=== PATIENT | female | born 1975 | race Caucasian/White ===

== ENCOUNTER 2016-10-30 06:36 | Day surgery (SDC) | payer BC ==
[2016-10-24 12:27] LABS: BASOPHILS 0.1 %; BASOPHILS ABSOLUTE 0.01 10/3/uL (0.0-0.16); EOSINOPHILS 1.4 %; HEMATOCRIT 39.8 % (36.0-48.0); HEMOGLOBIN 13.3 g/dL (12.0-16.0); IMMATURE GRANULOCYTES 0.1 %; IMMATURE GRANULOCYTES ABSOLUTE 0.01 10/3/uL (0.0-0.11); LYMPHOCYTES 31.7 %; LYMPHOCYTES ABSOLUTE 2.23 10/3/uL (0.67-4.30); MEAN CORPUS HGB CONC 33.4 g/dL (32.0-36.0); MEAN CORPUSCULAR HEMOGLOB 30.3 pg (26.0-34.0); MEAN PLATELET VOLUME 11.6 fL (9.2-13.0); MONOCYTES 7.1 %; NEUTROPHILS 59.6 %; NEUTROPHILS ABSOLUTE 4.19 10/3/uL (2.02-8.40); PLATELET COUNT 247 10/3/uL (150-400); RBC DISTRIBUTION WIDTH 13.4 % (12.0-16.0); RED CELL COUNT 4.39 10/6/uL (4.0-5.6)
[2016-10-24 12:29] LABS: MANUAL DIFF NO %; MEAN CORPUSCULAR VOLUME 90.7 fL (80-100)
[2016-10-24 12:54] LABS: A/G RATIO 1.1 (0.7-1.9); ALBUMIN 3.8 G/DL (3.5-5.0); ALKALINE PHOSPHATASE 91 U/L (45-117); BUN (BLOOD UREA NITROGEN) 7 MG/DL (6-23); CALCIUM, SERUM 9.3 MG/DL (8.5-10.4); CHLORIDE, SERUM 104 MMOL/L (96-112); CREATININE 0.71 MG/DL (0.55-1.02); GFR AFRICAN AMERICAN 121 ML/MIN (>=60); GFR NON AFRICAN AMERICAN 104 ML/MIN (>=60); GLOBULIN 3.6 G/DL (2.5-4.1); GLUCOSE, SERUM 93 MG/DL (60-99); POTASSIUM, SERUM 4.3 MMOL/L (3.5-5.3); SGOT(AST) 20 U/L (5-40); SGPT(ALT) 23 U/L (5-65); SODIUM, SERUM 141 MMOL/L (135-148); TOTAL BILIRUBIN 0.5 MG/DL (0-1.2); TOTAL PROTEIN 7.4 G/DL (6.0-8.5)
[2016-10-24 12:55] LABS: CO2 (CARBON DIOXIDE) 27 MMOL/L (24-34)
--- NOTE | ~2016-10-30 | OP ---
Record Of Operation [facility] [address] [place]. [address] NAME: LEIGHANN RUBIO : 71 STATUS : REG [facility] [place] PAT#: [id number] AGE: 41 ADM/REG DATE : 10/30/16 MR#: [id number] REPORT SERV DATE: 10/30/16 DICTATED BY: SARAH CHUNG DATE: 10/30/16 REPORT STATUS : Draft TRANSCRIBED BY: MODL DATE: 10/30/16 DATE OF PROCEDURE: 10/30/2016 PREOPERATIVE DIAGNOSES: Overactive bladder with urinary urgency, frequency, and incontinence. POSTOPERATIVE DIAGNOSES: Overactive bladder with urinary urgency, frequency, and incontinence. PROCEDURE PERFORMED: Cystoscopy with Botox injection. SURGEON: Sarah Chung M.D. ANESTHESIA: General. ESTIMATED BLOOD LOSS: Less than 5 mL. INDICATIONS: This is a 41-year-old white female with chronic irritative voiding symptoms including frequency, urgency, nocturia, and urge incontinence. She has had good response thus far to intravesical injection of Botox, and we are planning to inject 200 units today. Risks of infection, bleeding, retention, etc., were reviewed. PROCEDURE IN DETAIL: The patient was taken to the operating room and underwent a general anesthetic. She was placed in the lithotomy position on the table, and her external genitalia were sterilely prepped and draped. The 22-Nigerien cystoscope sheath with 30-degree lens was inserted under direct vision per urethra with the aid of the video monitor. The bladder was thoroughly inspected and the mucosa looked normal throughout. There were no stones or mass lesions in the bladder. There was no significant inflammatory change. Single orifices were seen bilaterally and looked normal. The urethra looked normal as well. There was a moderate cystocele. I injected 200 units of Botox through 20 separate injection sites on the floor and lower posterior wall of the bladder. We had very minimal bleeding. She tolerated this quite well. There were no complications. At the conclusion of the procedure, the bladder was drained. All endoscopic apparatus was removed and she was taken to recovery in stable condition. SOLANGE/SHAKEEL Sarah Chung M.D. / [id number] CC: Sarah Chung M.D. Record Of Operation [address] [address] NAME: LEIGHANN RUBIO : 71 STATUS : REG [facility] [place] PAT#: [id number] AGE: 41 ADM/REG DATE : 10/30/16 MR#: [id number] REPORT SERV DATE: 10/30/16 DICTATED BY: SARAH CHUNG DATE: 10/30/16 REPORT STATUS : Draft TRANSCRIBED BY: MODL DATE: 10/30/16 David Hou
[~2016-10-30 06:36] MED LIST: ABILIFY5 PO; BIOTIN5 MG PO; CIP5 PO; CYMBALTA60 PO; DEMA10T PO; FISH OIL 1400 MG PO; FISH-EPA1000 MG PO; FORTAMET500 MG PO; GRALISE600 MG PO; KLOR-CON M2020 MEQ PO; LIPITOR20 PO; LYRICA150 MG PO; MAGOX4 PO; MERIBIN5 MG PO; NORCO1 TAB PO; NUVIGIL150 MG PO; PERCOCET1 TA4 PO; PR25 PO; PYR200 PO; TRAZ50 PO; VESICARE10 MG PO; VIIBRYD40 MG PO; ZANAFLEX 4 MG TA4 MG PO; ZANAFLEX2 MG PO
== END 2016-10-30 12:50 | disposition home or self-care (01) ==
LOC: SDC 06:36
PROVIDERS: Urology
PROC: 3E0K8GC Introduction of Other Therapeutic Substance into Genitourinary Tract, Via Natural or Artificial Opening Endoscopic (ICD-10-PCS; principal; 2016-10-30 07:45)
DX: N32.81 Overactive bladder (principal); R39.15 Urgency of urination; R32 Unspecified urinary incontinence; F32.9 Major depressive disorder, single episode, unspecified; E66.01 Morbid (severe) obesity due to excess calories; Z68.36 Body mass index [BMI] 36.0-36.9, adult; Z88.8 Allergy status to other drugs, medicaments and biological substances; Z91.041 Radiographic dye allergy status; Z79.84 Long term (current) use of oral hypoglycemic drugs; Z79.899 Other long term (current) drug therapy
CPT/HCPCS: 71020; 80053; 82962; 85025; 93005; A9270-GY; J0585; J2250; J2405; J2550; J2710; J3010; Q9967

== ENCOUNTER 2017-05-03 13:22 | Day surgery (SDC) | payer BC ==
--- NOTE | ~2017-05-03 | OP ---
Record Of Operation [facility] [address] [place]. [address] NAME: LEIGHANN RUBIO : 71 STATUS : [facility]#: [id number] AGE: 42 ADM/REG DATE : 05/03/17 MR#: [id number] REPORT SERV DATE: 05/03/17 DICTATED BY: SARAH CHUNG DATE: 05/03/17 REPORT STATUS : Draft TRANSCRIBED BY: MODL DATE: 05/03/17 DATE OF PROCEDURE: 05/03/2017 PREOPERATIVE DIAGNOSES: 1. Urinary tract infection. 2. Right hydronephrosis. 3. Bilateral stone disease. POSTOPERATIVE DIAGNOSES: 1. Urinary tract infection. 2. Right hydronephrosis. 3. Bilateral stone disease. PROCEDURE PERFORMED: Cystoscopy, bilateral retrograde pyelogram, right ureteral stent insertion. ANESTHESIA: General. ESTIMATED BLOOD LOSS: None. INDICATIONS: This is a 42-year-old white female, who was suspected of having a febrile UTI, although this is not culture-documented. Screening CT of the abdomen and pelvis has shown right hydronephrosis with ureteral stone passage suspected. No particular obstructing stone was seen. Small bilateral stones were noted. We are planning cystoscopy, right retrograde pyelogram, and right ureteral stent. Risks of infection, bleeding, failure, need for further surgery, etc., were reviewed. PROCEDURE IN DETAIL: The patient was taken to the operating room and underwent a general anesthetic. She was placed in the lithotomy position on the table and her external genitalia were sterilely prepped and draped. The 22-Monegasque cystoscope sheath with 30-degree lens was inserted under direct vision per urethra with the aid of the video monitor. The bladder was inspected. There was a moderate cystocele. The bladder mucosa looked normal throughout. Single orifices were seen bilaterally. No stones or mass lesions or significant inflammatory changes were seen in the bladder. A right retrograde pyelogram was obtained showing a mildly dilated right ureter and a mildly dilated right collecting system. No specific point of obstruction or stone was noted. A left retrograde pyelogram was also obtained showing a normal caliber ureter and a normal left collecting system. The ureteral catheter was advanced up into the right kidney and urine was obtained for C and S. The urine actually looked clear. A 0.038 guidewire was then advanced up into the right kidney, and over this, a 6-Monegasque variable length stent was advanced such that the proximal end of the stent was observed to coil in the pelvis of the kidney under fluoroscopic guidance and the distal end of the stent was visually observed to coil in the bladder following removal of the guidewire. The bladder was drained. All endoscopic apparatus was removed and the patient was taken to recovery in stable condition. She tolerated the procedure well. There were no complications. Record Of Operation [address] [place] [facility]. [address] NAME: LEIGHANN RUBIO : 71 STATUS : [facility] PAT#: [id number] AGE: 42 ADM/REG DATE : 05/03/17 MR#: [id number] REPORT SERV DATE: 05/03/17 DICTATED BY: SARAH CHUNG DATE: 05/03/17 REPORT STATUS : Draft TRANSCRIBED BY: SHAKEEL DATE: 05/03/17 SOLANGE/SHAKEEL Sarah Chung M.D. / [id number]
[2017-05-03 14:04] LABS: HEMATOCRIT 36.1 % (36.0-48.0); HEMOGLOBIN 11.9 g/dL (12.0-16.0)
== END 2017-05-03 19:32 | disposition home or self-care (01) ==
LOC: SDC 13:22
PROVIDERS: Urology
PROC: BT14ZZZ Fluoroscopy of Kidneys, Ureters and Bladder (ICD-10-PCS; 2017-05-03)
PROC: 0T768DZ Dilation of Right Ureter with Intraluminal Device, Via Natural or Artificial Opening Endoscopic (ICD-10-PCS; 2017-05-03)
PROC: 0T768DZ Dilation of Right Ureter with Intraluminal Device, Via Natural or Artificial Opening Endoscopic (ICD-10-PCS; principal; 2017-05-03 15:00)
DX: N81.10 Cystocele, unspecified (principal); E11.9 Type 2 diabetes mellitus without complications; Z79.899 Other long term (current) drug therapy
CPT/HCPCS: 74420; 82962; 85014; 85018; 87086; A9270-GY; C1758; C2617; J0360; J1170; J2250; J2270; J2405; J3010; Q9967